=== PATIENT | male | born 1950 | race Caucasian/White ===

== ENCOUNTER 2018-10-13 17:16 | Emergency (ER) | payer MEDICARE ==
[~2018-10-13] VITALS: Ht 182.9 cm; Wt 112.5 kg
[2018-10-13 18:01] LABS: BASOPHILS ABSOLUTE AUTO 0.07 K/mm3 (0.00-0.23); BASOPHILS PERCENT AUTO 1 % (0-2); EOSINOPHILS ABSOLUTE AUTO 0.28 K/mm3 (0.00-0.68); EOSINOPHILS PERCENT AUTO 3 % (0-6); Hematocrit 44.5 % (37.0-53.0); Hemoglobin 14.8 g/dL (13.5-17.5); IMMATURE GRAN ABSOLUTE AUTO 0.01 K/mm3 (0.00-0.10); IMMATURE GRAN PERCENT AUTO 0 % (0-1); LYMPHOCYTES ABSOLUTE AUTO 2.47 K/mm3 (0.84-5.20); LYMPHOCYTES PERCENT AUTO 27 % (21-46); MONOCYTES ABSOLUTE AUTO 0.73 K/mm3 (0.16-1.47); MONOCYTES PERCENT AUTO 8 % (4-13); Mean Corpuscular HGB 28.8 pg (26.0-34.0); Mean Corpuscular HGB Conc 33.3 g/dL (31.5-36.5); Mean Corpuscular Volume 87 fL (80-100); Mean Platelet Volume 9.4 fL (9.1-12.4); NEUTROPHILS ABSOLUTE AUTO 5.55 K/mm3 (1.96-9.15); NEUTROPHILS PERCENT AUTO 61 % (41-73); Platelet Count 198 K/mm3 (150-400); RDW Coefficient Variation 12.9 % (11.7-14.2); RDW Standard Deviation 40.8 fL (35.1-46.3); Red Blood Cell Count 5.14 M/mm3 (4.30-5.90); White Blood Cell Count 9.11 K/mm3 (4.00-11.30)
[2018-10-13 18:29] LABS: Alanine Aminotransfer (ALT/SGP 78 U/L (12-78); Albumin, Blood 3.8 g/dL (3.4-5.0); Alk Phos 113 U/L (50-136); Anion Gap 6 mmol/L (6-16); Aspartate Aminotrans (AST/SGOT 39 U/L (12-37); Bilirubin, Total 0.5 mg/dL (0.1-1.0); Blood Urea Nitrogen 18 mg/dL (8-24); CO2, Blood 26 mmol/L (21-32); Calcium, Blood 8.6 mg/dL (8.5-10.1); Chloride, Blood 105 mmol/L (98-108); Creatinine, Blood 0.67 mg/dL (0.60-1.20); Globulin, Blood 3.7 g/dL (2.2-4.0); Glomerular Filtration Rate >60 (60-); Glucose, Blood 117 mg/dL (70-99); Potassium, Blood 4.1 mmol/L (3.5-5.5); Sodium, Blood 137 mmol/L (136-145); Total Protein, Blood 7.5 g/dL (6.4-8.2); Troponin I <0.015 ng/mL (0.000-0.040)
[2018-10-13] MEDS ORDERED: ATOR40TA PO (20:45)
[2018-10-13] MEDS ORDERED: METO50ER PO (20:45)
[2018-10-13] MEDS ORDERED: CITA20 PO (20:46)
[2018-10-13] MEDS ORDERED: LISI5 (20:46)
== END 2018-10-13 21:28 | disposition home or self-care (01) ==
LOC: ER 17:16
PROVIDERS: Physician Assistant
DX: R07.89 Other chest pain (principal); Z79.899 Other long term (current) drug therapy
CPT/HCPCS: 71046; 80053; 83690; 84484; 85025; 93005; 93010; 99285-25

== ENCOUNTER 2019-12-27 08:28 | Emergency (ER) | payer MEDICARE ==
[~2019-12-27] VITALS: Ht 182.9 cm; Wt 113.4 kg
[~2019-12-27 08:28] MED LIST: ATOR40TA PO; CITA20 PO; LISI5; METO50ER PO
[2019-12-27] MEDS ORDERED: ASPI325 PO (08:49)
[2019-12-27] MEDS ORDERED: Prednisone20 MG PO (10:54)
[2019-12-27] MEDS ORDERED: Zovirax800 MG PO (10:54)
== END 2019-12-27 12:07 | disposition home or self-care (01) ==
LOC: ER 08:28
DX: G51.0 Bell's palsy (principal); I10 Essential (primary) hypertension; E78.00 Pure hypercholesterolemia, unspecified; Z79.82 Long term (current) use of aspirin; Z79.899 Other long term (current) drug therapy
CPT/HCPCS: 70450; 99284-25; J7512

== ENCOUNTER 2020-10-12 10:19 | Day surgery (SDC) | payer MEDICARE ==
[~2020-10-12] VITALS: Ht 182.9 cm; Wt 101.9 kg
[~2020-10-12 10:19] MED LIST changes: +ASPI325 PO; +ERYT1OIN RIGHTEYE; +Norco 5-325 Ta1 EACH PO; +Prednisone20 MG PO; +Zovirax800 MG PO
== END 2020-10-12 12:51 | disposition home or self-care (01) ==
LOC: ORSCSDS 10:19
PROVIDERS: Internal Medicine Gastroenterology
PROC: 0DBM8ZX Excision of Descending Colon, Via Natural or Artificial Opening Endoscopic, Diagnostic (ICD-10-PCS; principal; 2020-10-12 11:45)
DX: Z12.11 Encounter for screening for malignant neoplasm of colon (principal); Z86.010 Personal history of colon polyps; D12.4 Benign neoplasm of descending colon; K64.8 Other hemorrhoids; K57.30 Diverticulosis of large intestine without perforation or abscess without bleeding; E66.9 Obesity, unspecified; Z68.31 Body mass index [BMI] 31.0-31.9, adult
CPT/HCPCS: 88305; J2704; J7120

== ENCOUNTER → 2021-10-10 | Outpatient (CLI) | payer MEDICARE ==
[2021-10-10 19:21] LABS: Alanine Aminotransfer (ALT/SGP 72 U/L (12-78); Albumin, Blood 3.6 g/dL (3.4-5.0); Alk Phos 112 U/L (50-136); Anion Gap 3 mmol/L (6-16); Aspartate Aminotrans (AST/SGOT 30 U/L (12-37); Bilirubin, Total 0.4 mg/dL (0.1-1.0); Blood Urea Nitrogen 14 mg/dL (8-24); Bun/Creatinine Ratio 15.6 (12.0-20.0); CO2, Blood 35 mmol/L (21-32); Calcium, Blood 9.1 mg/dL (8.5-10.1); Chloride, Blood 100 mmol/L (98-108); Globulin, Blood 3.5 g/dL (2.2-4.0); Glomerular Filtration Rate >60 (60-); Glucose, Blood 253 mg/dL (70-99); Sodium, Blood 138 mmol/L (136-145); Total Protein, Blood 7.1 g/dL (6.4-8.2)
== END | disposition home or self-care (01) ==
LOC: LAB SHORT 14:43 → LAB 14:43
PROVIDERS: Family Medicine
DX: E11.9 Type 2 diabetes mellitus without complications (principal)
CPT/HCPCS: 80053; 83036

== ENCOUNTER 2023-01-03 19:07 | Emergency (ER) | payer MEDICARE ==
[~2023-01-03] VITALS: Ht 182.9 cm; Wt 108.9 kg
[2023-01-03 19:13] VITALS: BP 122/80
== END 2023-01-03 19:40 | disposition home or self-care (01) ==
LOC: ER 19:07
DX: R05.9 Cough, unspecified (principal); I10 Essential (primary) hypertension; E78.5 Hyperlipidemia, unspecified; Z79.82 Long term (current) use of aspirin; Z79.899 Other long term (current) drug therapy; Z95.5 Presence of coronary angioplasty implant and graft
CPT/HCPCS: 99282

== ENCOUNTER → 2023-02-09 | Outpatient (CLI) | payer MEDICARE ==
[2023-02-09 14:39] LABS: BASOPHILS ABSOLUTE AUTO 0.06 K/mm3 (0.00-0.23); BASOPHILS PERCENT AUTO 1 % (0-2); EOSINOPHILS ABSOLUTE AUTO 0.23 K/mm3 (0.00-0.68); EOSINOPHILS PERCENT AUTO 4 % (0-6); Hematocrit 44.8 % (37.0-53.0); Hemoglobin 15.6 g/dL (13.5-17.5); IMMATURE GRAN ABSOLUTE AUTO 0.02 K/mm3 (0.00-0.10); IMMATURE GRAN PERCENT AUTO 0 % (0-1); LYMPHOCYTES PERCENT AUTO 32 % (21-46); MONOCYTES ABSOLUTE AUTO 0.53 K/mm3 (0.16-1.47); MONOCYTES PERCENT AUTO 8 % (4-13); Mean Corpuscular HGB 29.9 pg (26.0-34.0); Mean Corpuscular HGB Conc 34.8 g/dL (31.5-36.5); Mean Corpuscular Volume 86 fL (80-100); Mean Platelet Volume 9.8 fL (9.1-12.4); NEUTROPHILS ABSOLUTE AUTO 3.49 K/mm3 (1.96-9.15); NEUTROPHILS PERCENT AUTO 55 % (41-73); Platelet Count 175 K/mm3 (150-400); RDW Coefficient Variation 12.7 % (11.7-14.2); RDW Standard Deviation 39.7 fL (35.1-46.3); Red Blood Cell Count 5.22 M/mm3 (4.30-5.90); White Blood Cell Count 6.33 K/mm3 (4.00-11.30)
[2023-02-09 18:32] LABS: Alanine Aminotransfer (ALT/SGP 96 U/L (12-78); Alk Phos 103 U/L (50-136); Anion Gap 6 mmol/L (6-16); Aspartate Aminotrans (AST/SGOT 61 U/L (12-37); Bilirubin, Total 0.9 mg/dL (0.1-1.0); Blood Urea Nitrogen 13 mg/dL (8-24); Bun/Creatinine Ratio 16.5 (12.0-20.0); CHOL/HDL RATIO 3.7; CO2, Blood 28 mmol/L (21-32); Calcium, Blood 9.6 mg/dL (8.5-10.1); Chloride, Blood 102 mmol/L (98-108); Cholesterol 157 mg/dL (50-200); Creatinine, Blood 0.79 mg/dL (0.60-1.20); Globulin, Blood 3.9 g/dL (2.2-4.0); Glomerular Filtration Rate 95 (60-); Glucose, Blood 258 mg/dL (70-99); HDL Cholesterol 42 mg/dL (>39); LDL/HDL RATIO 2.2; Low Density Lipoprotein Chol 94 mg/dL (0-110); Potassium, Blood 4.2 mmol/L (3.5-5.5); Prostate Specific Antigen 0.649 ng/mL (0.000-4.000); Sodium, Blood 136 mmol/L (136-145); Total Protein, Blood 7.9 g/dL (6.4-8.2); Triglycerides 104 mg/dL (30-160); Very Low Density Lipoprot Chol 20 mg/dL (6-32)
[2023-02-11 01:10] LABS: HEMOGLOBIN A1C 9.7 % (4.8-5.6)
== END | disposition home or self-care (01) ==
LOC: LAB SHORT 13:14 → LAB 13:14
PROVIDERS: Family Medicine
DX: Z12.5 Encounter for screening for malignant neoplasm of prostate (principal); E11.9 Type 2 diabetes mellitus without complications; I10 Essential (primary) hypertension; E78.2 Mixed hyperlipidemia
CPT/HCPCS: 80053; 80061; 83036; 85025; G0103

== ENCOUNTER → 2023-08-09 | Outpatient (CLI) | payer MEDICARE ==
[2023-08-09 11:50] LABS: BASOPHILS ABSOLUTE AUTO 0.06 K/mm3 (0.00-0.23); BASOPHILS PERCENT AUTO 1 % (0-2); EOSINOPHILS ABSOLUTE AUTO 0.22 K/mm3 (0.00-0.68); EOSINOPHILS PERCENT AUTO 3 % (0-6); Hematocrit 41.2 % (37.0-53.0); Hemoglobin 14.1 g/dL (13.5-17.5); IMMATURE GRAN ABSOLUTE AUTO 0.01 K/mm3 (0.00-0.10); IMMATURE GRAN PERCENT AUTO 0 % (0-1); LYMPHOCYTES ABSOLUTE AUTO 2.22 K/mm3 (0.84-5.20); LYMPHOCYTES PERCENT AUTO 34 % (21-46); MONOCYTES ABSOLUTE AUTO 0.51 K/mm3 (0.16-1.47); MONOCYTES PERCENT AUTO 8 % (4-13); Mean Corpuscular HGB 29.8 pg (26.0-34.0); Mean Corpuscular HGB Conc 34.2 g/dL (31.5-36.5); Mean Corpuscular Volume 87 fL (80-100); Mean Platelet Volume 9.5 fL (9.1-12.4); NEUTROPHILS ABSOLUTE AUTO 3.53 K/mm3 (1.96-9.15); NEUTROPHILS PERCENT AUTO 54 % (41-73); Platelet Count 217 K/mm3 (150-400); RDW Standard Deviation 40.9 fL (35.1-46.3); Red Blood Cell Count 4.73 M/mm3 (4.30-5.90); White Blood Cell Count 6.55 K/mm3 (4.00-11.30)
[2023-08-09 12:17] LABS: Albumin, Blood 3.9 g/dL (3.4-5.0); Bilirubin, Total 0.5 mg/dL (0.1-1.0); Bun/Creatinine Ratio 26.9 (12.0-20.0); Creatinine, Blood 0.85 mg/dL (0.60-1.20); Globulin, Blood 3.8 g/dL (2.2-4.0); Potassium, Blood 4.8 mmol/L (3.5-5.5); Total Protein, Blood 7.7 g/dL (6.4-8.2)
== END | disposition home or self-care (01) ==
LOC: LAB 10:48 → LAB SHORT 10:48
PROVIDERS: Physician Assistant
DX: M79.602 Pain in left arm (principal)
CPT/HCPCS: 80053; 84484; 85025

== ENCOUNTER 2024-08-06 12:09 | Emergency (ER) | payer MEDICARE ==
[~2024-08-06] VITALS: Ht 182.9 cm; Wt 108.9 kg
[2024-08-06 12:25] VITALS: BP 124/81
[2024-08-06] MEDS ORDERED: Lidocaine 4% 1 Patch TOP ONE (12:40)
[2024-08-06] MEDS ORDERED: Cyclobenzaprine HCl 10 MG Tab PO ONE (12:40)
[2024-08-06] MEDS ORDERED: Ketorolac Tromethamine 15mg Vial IM ONE (12:40)
[2024-08-06] MEDS ORDERED: Diazepam 5 MG Tab PO ONE (13:30)
[2024-08-06] MEDS ORDERED: DIAZ5 PO ×2 (14:26→14:44)
== END 2024-08-06 15:01 | disposition home or self-care (01) ==
LOC: ER 12:09
DX: M54.50 Low back pain, unspecified (principal); I10 Essential (primary) hypertension; E78.5 Hyperlipidemia, unspecified; I25.2 Old myocardial infarction; Z79.82 Long term (current) use of aspirin; Z79.899 Other long term (current) drug therapy; Z95.5 Presence of coronary angioplasty implant and graft
CPT/HCPCS: 96372; 99283-25; A9270; J1885

== ENCOUNTER 2024-08-18 08:31 | Day surgery (SDC) | payer MEDICARE ==
[~2024-08-18] VITALS: Ht 182.9 cm; Wt 109.0 kg
[2024-08-18] VITALS (10 sets, daily range): BP systolic 120–162; BP diastolic 68–92
[~2024-08-18 08:31] MED LIST changes: +DIAZ5 PO; +Heparin Sodium 1000 Units/ML 10ML MDV ONE; +NS 1,000 ML IV ONE; +NS 500 ML IV ONE
[2024-08-18 09:14] LABS: BASOPHILS ABSOLUTE AUTO 0.05 K/mm3 (0.00-0.23); BASOPHILS PERCENT AUTO 1 % (0-2); EOSINOPHILS ABSOLUTE AUTO 0.24 K/mm3 (0.00-0.68); EOSINOPHILS PERCENT AUTO 4 % (0-6); Hematocrit 41.6 % (37.0-53.0); Hemoglobin 14.1 g/dL (13.5-17.5); IMMATURE GRAN ABSOLUTE AUTO 0.02 K/mm3 (0.00-0.10); IMMATURE GRAN PERCENT AUTO 0 % (0-1); LYMPHOCYTES PERCENT AUTO 32 % (21-46); MONOCYTES ABSOLUTE AUTO 0.79 K/mm3 (0.16-1.47); MONOCYTES PERCENT AUTO 13 % (4-13); Mean Corpuscular HGB 29.7 pg (26.0-34.0); Mean Corpuscular HGB Conc 33.9 g/dL (31.5-36.5); Mean Corpuscular Volume 88 fL (80-100); Mean Platelet Volume 9.4 fL (9.1-12.4); NEUTROPHILS ABSOLUTE AUTO 3.03 K/mm3 (1.96-9.15); NEUTROPHILS PERCENT AUTO 50 % (41-73); Platelet Count 158 K/mm3 (150-400); RDW Coefficient Variation 12.7 % (11.7-14.2); RDW Standard Deviation 40.8 fL (35.1-46.3); Red Blood Cell Count 4.75 M/mm3 (4.30-5.90); White Blood Cell Count 6.03 K/mm3 (4.00-11.30)
[2024-08-18 09:29] LABS: International Normalized Ratio 1.02; Prothrombin Time Results 10.9 Sec (9.7-11.5)
[2024-08-18 09:52] LABS: Bun/Creatinine Ratio 26.3 (12.0-20.0); Calcium, Blood 8.8 mg/dL (8.5-10.1); Creatinine, Blood 0.8 mg/dL (0.60-1.20)
[2024-08-18] MEDS ORDERED: NS 1,000 ML IV ONE (11:56)
[2024-08-18] MEDS ORDERED: Midazolam HCl 1MG / ML 2ML Vial ONE ×2 (11:56→12:25)
[2024-08-18] MEDS ORDERED: FentaNYL Citrate 50 MCG/ML 2 ML Injection ONE ×2 (11:56→12:57)
[2024-08-18] MEDS ORDERED: Heparin Sodium 1000 Units/ML 10ML MDV ONE (11:57)
--- NOTE | 2024-08-18 13:40 | NUR ---
PATIENT ARRIVED TO RECOVERY ROOM WITH HOB FLAT. LEFT GROIN SITE C/D/I SOFT/NONTENDER, NO EVIDENCE OF BLEEDING. VSS ON RA. PATIENT CONVERSING APPROPRIATELY.
--- NOTE | 2024-08-18 14:15 | NUR ---
HOB ELEVATED 30 DEGREES. LEFT GROIN SITE C/D/I SOFT/NONTENDER, NO EVIDENCE OF BLEEDING. VSS ON RA. PATIENT DENYING ANY PAIN.
--- NOTE | 2024-08-18 15:00 | NUR ---
PATIENT TOLERATING PO INTAKE WELL. DISCHARGE INSTRUCTIONS REVIEWED WITH PATIENT. PATIENT AMBULATING AND VOIDING TO RESTROOM WITHOUT DIFFICULTY. LEFT GROIN SITE C/D/I SOFT/NONTENDER, NO EVIDENCE OF BLEEDING. VSS ON RA.
--- NOTE | 2024-08-18 15:19 | NUR ---
PATIENT DISCHARGED HOME AT THIS TIME. LEFT GROIN SITE C/D/I SOFT/NONTENDER, NO EVIDENCE OF BLEEDING. VSS ON RA. PIV REMOVED WITHOUT DIFFICULTY, CATHETER INTACT. PATIENT WHEELED TO HOSPITAL ENTRANCE AND FRIEND ABLE TO PROVIDE TRANSPORTATION HOME.
== END 2024-08-18 15:57 | disposition home or self-care (01) ==
LOC: MHTC 08:31
PROVIDERS: Radiology Diagnostic Radiology
DX: E11.51 Type 2 diabetes mellitus with diabetic peripheral angiopathy without gangrene (principal); I70.222 Atherosclerosis of native arteries of extremities with rest pain, left leg; I25.10 Atherosclerotic heart disease of native coronary artery without angina pectoris; I25.2 Old myocardial infarction; E78.5 Hyperlipidemia, unspecified; I10 Essential (primary) hypertension; Z79.82 Long term (current) use of aspirin; Z79.899 Other long term (current) drug therapy
CPT/HCPCS: 76937; 80048; 85025; 85610; 99152; 99153; C1714; C1725; C1760; C1769; C1874; C1887; C1894; C2623; J1644; J2250; J3010; J7030; J7050; Q9967

== ENCOUNTER 2024-09-01 06:39 | Day surgery (SDC) | payer MEDICARE ==
[2024-09-01] VITALS (11 sets, daily range): BP systolic 121–153; BP diastolic 78–92
[~2024-09-01] VITALS: Ht 182.9 cm; Wt 111.0 kg
[~2024-09-01 06:39] MED LIST changes: -Heparin Sodium 1000 Units/ML 10ML MDV ONE; -LISI5; +LISI5 PO; -NS 1,000 ML IV ONE; -NS 500 ML IV ONE
[2024-09-01] MEDS ORDERED: Heparin Sodium 1000 Units/ML 10ML MDV ONE ×2 (07:33→08:22)
[2024-09-01] MEDS ORDERED: NS 1,000 ML IV ONE ×2 (07:33→08:23)
[2024-09-01] MEDS ORDERED: Nitroglycerin 2 MG/20 ML BTL ONE (07:33)
[2024-09-01] MEDS ORDERED: NS 500 ML IV ONE (07:33)
[2024-09-01] MEDS ORDERED: CLOP75 PO (08:03)
[2024-09-01 08:12] LABS: Mean Corpuscular HGB 29.7 pg (26.0-34.0); Mean Corpuscular HGB Conc 34.1 g/dL (31.5-36.5); Mean Corpuscular Volume 87 fL (80-100); Mean Platelet Volume 9.1 fL (9.1-12.4); Platelet Count 206 K/mm3 (150-400); RDW Coefficient Variation 12.4 % (11.7-14.2); RDW Standard Deviation 39.8 fL (35.1-46.3); Red Blood Cell Count 4.71 M/mm3 (4.30-5.90); White Blood Cell Count 7.14 K/mm3 (4.00-11.30)
[2024-09-01] MEDS ORDERED: Midazolam HCl 1MG / ML 2ML Vial ONE ×2 (08:21→09:25)
[2024-09-01] MEDS ORDERED: FentaNYL Citrate 50 MCG/ML 2 ML Injection ONE (08:22)
[2024-09-01 08:30] LABS: International Normalized Ratio 1.03
[2024-09-01 08:43] LABS: Bun/Creatinine Ratio 19.7 (12.0-20.0); Calcium, Blood 9.2 mg/dL (8.5-10.1); Creatinine, Blood 0.81 mg/dL (0.60-1.20); Potassium, Blood 4.4 mmol/L (3.5-5.5)
--- NOTE | 2024-09-01 10:00 | NUR ---
PATIENT ARRIVED TO RECOVERY ROOM. HOB FLAT. RIGHT GROIN ANGIOSEAL C/D/I WITH OLD DRAINAGE NOTED. VSS ON RA. PATIENT CONVERSING APPROPRIATELY. PATIENT DENYING ANY PAIN
--- NOTE | 2024-09-01 10:15 | NUR ---
DOPPLER PULSES PRESENT
--- NOTE | 2024-09-01 11:00 | NUR ---
HOB ELEVATED 30 DEGREES. RIGHT GROIN SITE C/D/I SOFT/NONTENDER, NO EVIDENCE OF BLEEDING. VSS ON RA. PATIENT DENYING ANY PAIN.
--- NOTE | 2024-09-01 11:25 | NUR ---
HOB ELEVATED 45 DEGREES. RIGHT GROIN SITE C/D/I SOFT/NONTENDER, NO EVIDENCE OF BLEEDING. PATIENT TOLERATING PO INTAKE WELL
--- NOTE | 2024-09-01 11:46 | NUR ---
PT sitting up eating snacks. Pt verbalize d/c instructions. L groin site soft, nontender, no bleeding or hematoma.
--- NOTE | 2024-09-01 11:58 | NUR ---
PATIENT DISCHARGED HOME AT THIS TIME. PATIENT WHEELED TO HOSPITAL ENTRANCE AND FRIEND ABLE TO PROVIDE TRANSPORTATION HOME. ALL PATIENT BELONGINGS LEFT WITH PATIENT. PIV REMOVED WITHOUT DIFFIUCLTY, CATHETER INTACT. PATIENT AMBULATING AND VOIDING TO RESTROOM WITHOUT DIFFIUCLTY, RIGHT GROIN SITE C/D/I SOFT/NONTENDER, NO EVIDENCE OF BLEEDING. VSS.
== END 2024-09-01 13:53 | disposition home or self-care (01) ==
LOC: MHTC 06:39
PROVIDERS: Radiology Diagnostic Radiology
DX: E11.51 Type 2 diabetes mellitus with diabetic peripheral angiopathy without gangrene (principal); I25.10 Atherosclerotic heart disease of native coronary artery without angina pectoris; I25.2 Old myocardial infarction; I10 Essential (primary) hypertension; E78.5 Hyperlipidemia, unspecified; N40.0 Benign prostatic hyperplasia without lower urinary tract symptoms; Z79.82 Long term (current) use of aspirin; Z79.899 Other long term (current) drug therapy
CPT/HCPCS: 37228; 37232; 75716; 75774; 76937; 80048; 85027; 85610; 99152; 99153; C1725; C1760; C1769; C1887; C1894; C2623; C9764; J1644; J2250; J3010; J7030; J7050; Q9967